=== PATIENT | female | born 1975 | race Caucasian/White ===

== ENCOUNTER 2021-01-05 16:11 | Outpatient (CLI) | payer OTHER, SELFPAY ==
--- NOTE | ~2021-01-05 | MM_ITS ---
EXAMINATION: MM screening emely BI w evan HISTORY: Screening mammogram TECHNIQUE: Craniocaudal and mediolateral oblique 3-D tomosynthesis images were obtained and synthetic 2-D images were generated. CAD analysis was submitted and interpreted. COMPARISON: 02/07/2012 bilateral digital screening mammogram BREAST PARENCHYMAL COMPOSITION: There are scattered areas of fibroglandular density. FINDINGS: There is no evidence of suspicious mass, calcification, or architectural distortion to sugg est malignancy in either breast. There has been no suspicious interval change. IMPRESSION: 1. No mammographic evidence of malignancy. 2. Recommend routine screening mammography in one year. BI-RADS Category 1: Negative Reviewed, dictated and finalized at location A.
== END 2021-01-05 16:12 | disposition home or self-care (01) ==
LOC: ANHIMG 16:17
PROVIDERS: PCP Family Medicine; Visit Provider Nurse Practitioner Family
DX: Z12.31 Encounter for screening mammogram for malignant neoplasm of breast (principal)
CPT/HCPCS: 77063; 77067

== ENCOUNTER 2023-06-22 12:37 | Outpatient (CLI) | payer OTHER, SELFPAY ==
--- NOTE | ~2023-06-22 | MM_ITS ---
EXAMINATION: MM screening emely BI w evan HISTORY: Screening TECHNIQUE: Craniocaudal and mediolateral oblique 3-D tomosynthesis images were obtained and synthetic 2-D images were generated. CAD analysis was submitted and interpreted. COMPARISON: 01/05/2021 BREAST PARENCHYMAL COMPOSITION: There are scattered areas of fibroglandular density. FINDINGS: There is no evidence of suspicious mass, calcification, or architectural distortion to sugg est malignancy in either breast. There has been no suspicious interval change. IMPRESSION: 1. No mammographic evidence of malignancy. 2. Recommend routine screening mammography in one year. BI-RADS Category 1: Negative Reviewed, dictated and finalized at location A. [facility] [employer]
== END 2023-06-22 12:38 | disposition home or self-care (01) ==
LOC: CHSIMG 12:39
PROVIDERS: PCP Family Medicine; Visit Provider Family Medicine
DX: Z12.31 Encounter for screening mammogram for malignant neoplasm of breast (principal)
CPT/HCPCS: 77063; 77067

== ENCOUNTER 2023-09-02 09:40 | Emergency (ER) | payer OTHER, SELFPAY ==
--- NOTE | 2023-09-02 09:46 | ED.GENADULT ---
HPI - General Adult General Chief complaint: Upper Respiratory Infection Stated complaint: UPPER RESP X 1 MONTH Time Seen by Provider: 09/02/23 09:45 Source: patient Mode of arrival: ambulatory Limitations: no limitations History of Present Illness HPI narrative: This is a 48-year-old female who presents to the ED with chief complaint cough, congestion for 1 month. In the last several days she has noticed increasing tenderness to the anterior neck on both sides. Reports that the pain goes into her jaw on both sides. She has been on a Z-Jesús and doxycycline previously with no relief. Reports the cough is dry. Denies fevers, chills, nausea, vomiting, trismus, drooling, voice change. 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 Related Data Allergies Allergy/AdvReac Type Severity Reaction Status Date / Time Sulfa (Sulfonamide Allergy Mild Unverified 11/25/08 10:38 Antibiotics) BENADRY; Allergy Mild Uncoded 06/24/08 14:55 Review of Systems Review of Systems: All systems as dictated in HPI Exam Narrative: GENERAL: Well-appearing, well-nourished, and in no acute distress. HEAD: Normocephalic, atraumatic. EYES: PERRLA and EOMI. ENT: Mild tenderness to the bilateral anterior cervical chain lymph nodes. No significant swelling noted over the submandibular areas. TMs normal bilaterally. Airway intact. No muffled voice. No trismus. No drooling. No muffled voice. Nares clear, no rhinorrhea or epistaxis. Mucous membranes moist. Oropharynx slightly erythematous but no tonsillar hypertrophy or lesions or exudates noted. NECK: Supple. No adenopathy or masses. CHEST: No respiratory distress. Clear to auscultation. No wheezes rales or rhonchi HEART: Regular rate and rhythm. No murmur heard. Normal peripheral pulses. ABDOMEN: Soft, nontender, nondistended, normal active bowel sounds. MSK: Normal range of motion. No edema. SKIN: Warm, dry, no rash. NEURO: Alert and oriented x3. No focal deficits. PSYCH: Normal mood and affect. Medical Decision Making MDM Narrative Medical decision making narrative: this is a 48-year-old female who presents to the ED with chief complaint of cough, congestion and neck tenderness for several weeks. Vitals are normal. Afebrile. ENT exam he largely benign. Little bit of posterior oropharynx erythema but no other red flag signs. Symptoms are most likely consistent with parotitis. Suspect viral process, less likely to be acute suppurative parotitis. she is having some pain. lab work is unremarkable. Discussed trying clindamycin for additional coverage but she will likely need to see ENT if this problem continues. She is declining CT scan today. Pt will be discharged in stable condition. Return precautions given and supportive measures discussed. Pt is understanding and agreeable with plan for discharge and follow-up with PCP/ENT Discharge Plan Discharge Clinical Impression: Parotitis Patient Disposition: Home, Self-Care Condition: Stable Instructions: Antibiotic Form Additional Instructions: your exam today is overall reassuring. the pain you are feeling may be due to inflamation of the parotid gland. This is likely due to viral infection. Covering with clindamycin just in case it is bacterial. also make sure to try lemon drops or other sour candy to try to express the fluid out of the glands. Follow-up with PCP or ENT. If you have any new or worsening symptoms please return to the ER for further evaluation. Prescriptions: New clindamycin HCl 300 mg capsule 300 mg PO Q8H Qty: 15 0RF Follow-up/Referrals: Yoni Simpson MD [Physician] - [facility],Vida Mayorga MD [Primary Care Provider] - Time of Disposition: 10:55
[2023-09-02 09:48] VITALS: O2SAT 98
[2023-09-02 09:50] VITALS: BP 159/79; PULSE 70; RESP 19; TEMP 36.7; O2SAT 100
[2023-09-02 10:12] LABS: Basophils Percent Auto 0.8 % (0.2-1.2); Eosinophils Absolute Auto 0.3 K/mm3 (0-0.3); Eosinophils Percent Auto 5.3 % (0-4.4); Hematocrit 40.2 % (37.0-47.0); Hemoglobin 13.1 g/dL (12.0-15.0); Immature Granulocyte Absolute 0.01 K/mm3 (0.00-0.031); Immature Granulocyte Percent A 0.2 % (0-0.5); Lymphocytes Absolute Auto 1.38 K/mm3 (0.9-3.2); Lymphocytes Percent Auto 27.2 % (18.3-44.2); Mean Corpuscular HGB Conc 32.6 g/dl (32-36); Mean Corpuscular Hemoglobin 28.2 pg (26-34); Mean Corpuscular Volume 86.5 fl (80-100); Mean Platelet Volume 8.9 fl (7.4-10.4); Monocytes Absolute Auto 0.4 K/mm3 (0.1-0.6); Monocytes Percent Auto 8.3 % (2.6-8.5); Neutrophils Percent Auto 58.2 % (45.5-73.1); Platelet Count Result 203 k/mm3 (150-375); Red Blood Count 4.65 M/mm3 (4.2-5.4); White Blood Count 5.1 K/mm3 (4.5-10.0)
[2023-09-02 10:23] LABS: Alanine Aminotransferase 16 U/L (6-35); Albumin Level 4.2 g/dL (3.5-5.1); Alkaline Phosphatase 64 U/L (38-126); Anion Gap 8 mmol/L (8-16); Aspartate Amino Transferase 17 U/L (14-36); Bilirubin,Total 0.5 mg/dL (0.2-1.3); Blood Urea Nitrogen 16 mg/dL (7-17); Calcium 8.6 mg/dL (8.4-10.2); Carbon Dioxide 24 mmol/L (22-30); Chloride 108 mmol/L (98-107); Estimated CRCL calculation 127 ml/min; Estimated Glomerular Filt Rate > 60; Glucose 99 mg/dL (65-110); Potassium 3.8 mmol/L (3.4-5.0); Sodium 140 mmol/L (137-145)
[2023-09-02 10:37] LABS: Strep Group A RT-PCR NOT DETECTED (Negative)
[2023-09-02 10:48] LABS: Influenza A QL RT-PCR Negative (Negative); Influenza B QL RT-PCR Negative (Negative); RSV RNA, RT-PCR Negative (Negative); SARS-CoV-2 RNA PCR Negative (Negative)
[2023-09-02 11:04] VITALS: BP 138/76; PULSE 60; RESP 18; TEMP 36.4; O2SAT 99
== END 2023-09-02 11:05 | disposition home or self-care (01) ==
PROVIDERS: Emergency Medicine; Emergency Provider Physician Assistant; PCP Family Medicine
DX: K11.20 Sialoadenitis, unspecified (principal); Z20.822 Contact with and (suspected) exposure to COVID-19
CPT/HCPCS: 36415; 80053; 85025; 87637; 87651; 99283

== ENCOUNTER 2023-09-07 21:01 | Emergency (ER) | payer OTHER, SELFPAY ==
[2023-09-07 21:02] VITALS: BP 168/98; PULSE 81; RESP 16; TEMP 36.8; O2SAT 100
== END 2023-09-07 22:49 | disposition left against medical advice (07) ==
LOC: ANHED 22:39
PROVIDERS: PCP Family Medicine
DX: M54.2 Cervicalgia (principal)
CPT/HCPCS: 99199

== ENCOUNTER 2025-06-17 14:22 | Outpatient (CLI) | payer OTHER, SELFPAY ==
--- NOTE | ~2025-06-17 | MR_ITS ---
EXAM/PROCEDURE: MR knee RT wo con HISTORY: Pain in right knee COMPARISON: None available. TECHNIQUE: Right knee MRI FINDINGS: No fracture subluxation or dislocation present. 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 Small cartilaginous T2 weighted hyperintense irregularity also noted in the lateral tibial plateau image 13 series 6 may represent a tiny chondral defect. Small joint effusion present. No meniscal tear. Small amount of fluid in the distal fibers of the ACL can be seen on images 13 and 14 of series 6. Proximal and distal fibers of the ACL appear intact. PCL appears intact. Collateral ligaments appear intact. Small Calix's cyst incidentally noted. Trace amount of fluid in the subcutaneous soft tissues. Quadriceps and infrapatellar tendon intact. IMPRESSION: 1. 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 Tiny chondral defect or focal erosion involving the lateral tibial plateau possibly present. 2. Fluid interposed in the distal fibers of the ACL may be associated with previous ACL injury. Reviewed, dictated and finalized at location A. [employer] IMPRESSION: 1. Mild to moderate osteophytic tricompartmental degenerative changes most adva nced in the patellofemoral joint and lateral joint space. Tiny chondral defect or focal erosion involving the lateral tibial plateau possibly present. 2. Fluid interposed in the distal fibers of the ACL may be associated with prev ious ACL injury.
== END 2025-06-17 14:23 | disposition home or self-care (01) ==
PROVIDERS: PCP Physician Assistant; Visit Provider Chiropractor
DX: M17.11 Unilateral primary osteoarthritis, right knee (principal)
CPT/HCPCS: 73721